=== PATIENT | female | born 1955 | race Caucasian/White ===

== ENCOUNTER → 2016-08-27 | Outpatient (CLI) | payer BC, OTHER ==
[~2016-08-27] MED LIST: ALBUTEROL INHALER INH; ALLERGY10 M1 PO; AMLODIPINE BESY10 MG PO; AMLODIPINE BESYL5 MG PO; ASPIR-TRIN325 MG PO; ASPIRINBUFF PO; BACTRIM DS TABL1 TAB PO; CIPRO PO; GLIPIZIDE10 MG PO; GRALISE1 EACH PO; HUMALOG100 U/M1 SQ; HUMALOG100 U/ML SUBQ; INSULIN 70/30 SQ; KEFLEX500 M1 PO; LANTUS100 U/ML SQ; LANTUS100 UNITS/ SUBQ; LASIX PO; LEVEMIR SUBQ; LIPITOR40 MG PO; LISINOPRIL PO; LOPRESSOR PO; LYRICA100 MG PO; LYRICA300 MG PO; MEDROL DOSE PAK PO; METFORMIN PO; METOPROLOL TAR100 MG PO; MOBIC PO; NORCO 5MG-325MG PO; NOVOLIN 70100 UNITS/ SUBQ; PLAVIX PO; PRAVASTATIN SOD40 MG PO; PREDNISONE PO; PYRIDIUM PO; PYRIDIUM100 MG PO; TOPROL XL PO; TRAMADOL HCL50 M2 PO; ULTRAM PO; VALTREX PO; ZOCOR PO; ZOLOFT50 MG PO
== END | disposition home or self-care (01) ==
LOC: CSSDAY 10:01
PROC: 3C1ZX8Z Irrigation of Indwelling Device using Irrigating Substance, External Approach (ICD-10-PCS; principal; 2016-08-27)
DX: Z45.2 Encounter for adjustment and management of vascular access device (principal); Z85.048 Personal history of other malignant neoplasm of rectum, rectosigmoid junction, and anus; Z88.8 Allergy status to other drugs, medicaments and biological substances
CPT/HCPCS: G0463; J1642

== ENCOUNTER 2016-09-02 08:07 | Emergency (ER) | payer BC, OTHER ==
[~2016-09-02 08:07] MED LIST changes: -GRALISE1 EACH PO; -LASIX PO; -ZOLOFT50 MG PO
[2016-09-02] MEDS ORDERED: LASIX PO (08:08)
[2016-09-02] MEDS ORDERED: NOVOLIN 70100 UNITS/ SUBQ (08:08)
[2016-09-02] MEDS ORDERED: ZOLOFT50 MG PO (08:09)
[2016-09-02] MEDS ORDERED: GRALISE1 EACH PO (08:09)
[2016-09-02 08:31] LABS: URINE SOURCE CLEAN CATCH
[2016-09-02 08:34] LABS: URINE APPEARANCE CLOUDY; URINE BILIRUBIN NEG (NEG); URINE BLOOD 3+ (NEG); URINE COLOR YELLOW; URINE GLUCOSE NEG (NORM); URINE KETONE NEG (NEG); URINE LEUKOCYTE ESTERASE 3+ (NEG); URINE NITRATE NEG (NEG); URINE PROTEIN 1+ (NEG); URINE UROBILINOGEN 0.2 MG/DL (NORM)
[2016-09-02 08:35] LABS: MICRO INDICATED? YES
[2016-09-02 08:50] LABS: URINE RBC 50-100 /[HPF] (0-2)
[2016-09-02 08:51] LABS: CULTURE INDICATED? YES; URINE BACTERIA 2+ (NEG); URINE SQUAMOUS EPITHELIAL CELL OCCAS /[HPF]; URINE WBC INNUM /[HPF] (0-5)
== END 2016-09-02 09:07 | disposition home or self-care (01) ==
LOC: SED 08:07
PROVIDERS: Emergency Medicine
DX: N30.01 Acute cystitis with hematuria (principal); I10 Essential (primary) hypertension; E11.9 Type 2 diabetes mellitus without complications; I25.2 Old myocardial infarction; Z98.890 Other specified postprocedural states
CPT/HCPCS: 81003; 87086; 87088; 87186; 99283

== ENCOUNTER → 2016-10-01 | Outpatient (CLI) | payer BC, OTHER ==
[~2016-10-01] MED LIST changes: +GRALISE1 EACH PO; +LASIX PO; +ZOLOFT50 MG PO
[2016-10-01 11:40] LABS: HEMATOCRIT 36.1 % (35.0-45.0); HEMOGLOBIN 11.7 gm/dL (12.0-16.0); MEAN CELL VOLUME 89.1 FL (83-96); MEAN CORPUSCULAR HEMOGLOBIN 28.9 PG (28-34); MEAN CORPUSCULAR HGB CONC 32.5 g/dL (30-36); MEAN PLATELET VOLUME 8.5 FL (6.5-11.5); RED BLOOD COUNT 4.05 X10e (3.90-5.30); WHITE BLOOD COUNT 7.1 X10e3 (4.0-10.5)
[2016-10-01 12:37] LABS: ALBUMIN SERUM 3.5 g/dL (3.5-5.0); BILIRUBIN,TOTAL 0.4 mg/dL (0.2-2.0); CALCIUM SERUM 8.6 mg/dL (8.4-10.2); GLOM FILT RATE Estimated 61.6 mL/min (>60); POTASSIUM 4.3 mmol/L (3.5-5.1); PROTEIN TOTAL SERUM 6.5 g/dL (6.0-8.3)
[2016-10-01 12:55] LABS: FOLATE (FOLIC ACID) 21.2 ng/mL (>5.8)
== END | disposition home or self-care (01) ==
LOC: CSSDAY 10:52
PROVIDERS: Internal Medicine
PROC: 3C1ZX8Z Irrigation of Indwelling Device using Irrigating Substance, External Approach (ICD-10-PCS; principal; 2016-10-01)
DX: Z45.2 Encounter for adjustment and management of vascular access device (principal); Z85.048 Personal history of other malignant neoplasm of rectum, rectosigmoid junction, and anus; Z88.8 Allergy status to other drugs, medicaments and biological substances
CPT/HCPCS: 80053; 80061; 82306; 82607; 82746; 83036; 85027; G0463; J1642

== ENCOUNTER → 2016-11-12 | Outpatient (CLI) | payer BC, OTHER | END | disposition home or self-care (01) | LOC: CSSDAY 10:30 | DX: Z45.2 Encounter for adjustment and management of vascular access device (principal) | CPT/HCPCS: J1642 ==

== ENCOUNTER → 2017-01-25 | Outpatient (CLI) | payer BC, OTHER | END | disposition home or self-care (01) | LOC: CSSDAY 10:39 | PROC: 3C1ZX8Z Irrigation of Indwelling Device using Irrigating Substance, External Approach (ICD-10-PCS; principal; 2017-01-25) | DX: Z45.2 Encounter for adjustment and management of vascular access device (principal); Z85.048 Personal history of other malignant neoplasm of rectum, rectosigmoid junction, and anus; Z88.8 Allergy status to other drugs, medicaments and biological substances | CPT/HCPCS: J1642 ==